=== PATIENT | male | born 2000 | race Caucasian/White ===

== ENCOUNTER 2021-03-20 20:28 | Emergency (ER) | payer MEDICAID, SELFPAY ==
[2021-03-20 20:36] VITALS: BP 138/71; PULSE 110; RESP 17; TEMP 38.3; O2SAT 95; BMI 31.3
[2021-03-20] MEDS: Ibuprofen 600 MG TABLET PO (20:43)
[2021-03-20 20:57] LABS: IDNOW Serial# 9DD0AD1C; Strep A Nucleic Acid Positive (Negative)
[2021-03-20 21:08] LABS: COVID-19 Test Negative (Negative)
--- NOTE | 2021-03-20 21:19 | ED.FEVER ---
HPI - Fever General Chief Complaint: Fever Stated Complaint: fever Time Seen by Provider: 03/20/21 21:19 Source: patient Mode of arrival: ambulatory History of Present Illness HPI Narrative: 20-year-old male with 1 day history of sore throat and fever, diaphoretic, patient took Tylenol home. Otherwise, denies any shortness of breath/chest pain/palpitations/cough. Related Data Previous Rx's Medication Instructions Recorded amoxicillin 875 mg-potassium 1 tab PO Q12H 10 Days #20 tab 03/20/21 clavulanate 125 mg tablet (Augmentin) Allergies Allergy/AdvReac Type Severity Reaction Status Date / Time No Known Allergies Allergy Verified 03/20/21 20:36 [No Known Allergies*] Review of Systems Review of Systems: Pertinent positives and negatives as stated in HPI 10 point review of systems otherwise negative. [facility] Past Medical History Source: nursing notes reviewed Medical History No pertinent past medical history Social History Social History Advance Directives: No Advance Directives Information Provided: No Physical Exam Vital Signs: Vital Signs: Last Vital Signs Temp 101.0 F H 03/20/21 20:36 Pulse 110 H 03/20/21 20:36 Resp 17 03/20/21 20:36 BP 138/71 03/20/21 20:36 Pulse Ox 95 03/20/21 20:36 Body Mass Index 31.3 VITAL SIGNS: Reviewed. GENERAL: Well developed, well nourished, in no acute distress. HEAD: Normocephalic/atraumatic EYES: PERRLA, EOMI EARS: Ext canals without abnormality, TMs non-bulging and non-erythematous NOSE: Nares patent bilateral OROPHARYNX: no oral lesions noted, posterior pharynx with erythema and tonsillar enlargement/erythema/exudates NECK: Supple, no adenopathy LUNGS: Normal breath sounds. No adventitious sounds or accessory muscle use. SpO2<95> CARDIOVASCULAR: Regular rate and rhythm without noted murmurs ABDOMEN: Soft, non-tender, non-distended with bowel sounds. SKIN: Inspection of the skin reveals no rashes NEUROLOGIC: Alert and oriented x 4. Course Course Course Narrative: 20-year-old male with history and clinical presentation most consistent with strep pharyngitis and review of all investigations consistent with clinical exam. Patient received initial antibiotics here in the ER and then was discharged home with remaining course. MDM - Fever Lab Data Labs: Lab Results 03/20/21 03/20/21 Range/Units 20:47 20:47 COVID-19 (PRASHANT) Negative (Negative) COVID-19 Clin Com See Note S. pyogenes GrpA ROSARIO Positive A (Negative) Discharge Plan Discharge Clinical Impression: Acute streptococcal pharyngitis Patient Disposition: Home, Self-Care Instructions: Strep Throat (ED) Additional Instructions: 1. Tylenol 1000 mg, por v?a oral, cada 6 horas seg?n sea necesario para temperaturas superiores a 100,4?C. No exceda los 4000 mg en 24 horas. 2. Ibuprofeno 400 mg, por v?a oral con leche o alimentos, cada 6 horas seg?n sea necesario para temperaturas superiores a 100,4?C. 3. Incrementar la hidrataci?n de los fluidos especialmente con agua. 4. Jesús un seguimiento con le proveedor de atenci?n primaria en los pr?ximos 1-2 d?as para grzegorz reevaluaci?n. Regrese a la amilcar de emergencias por un empeoramiento yesica de los s?ntomas. Prescriptions: New amoxicillin-pot clavulanate [Augmentin] 875-125 mg tablet 1 tab PO Q12H 10 Days Qty: 20 RF: 0 Referrals: Physician,Unknown [Primary Care Provider] - 2 days Print Language: Slovak
[2021-03-20] MEDS: Amoxicillin/Potassium Clav 875 MG TABLET PO (21:33)
== END 2021-03-20 22:02 | disposition home or self-care (01) ==
PROVIDERS: Emergency Provider Student in an Organized Health Care Education/Training Program
DX: J02.0 Streptococcal pharyngitis (principal); R50.9 Fever, unspecified; Z20.822 Contact with and (suspected) exposure to COVID-19
CPT/HCPCS: 36415; 87635; 87651; 99283

== ENCOUNTER 2021-04-25 23:11 | Emergency (ER) | payer MEDICAID, SELFPAY ==
[2021-04-25 23:21] VITALS: BP 125/76; PULSE 97; RESP 16; TEMP 36.8; O2SAT 98; BMI 35.2
--- NOTE | 2021-04-26 00:10 | ED.GENADULT ---
HPI - General Adult General Chief complaint: General Medical Stated complaint: throat pain Time Seen by Provider: 04/26/21 00:01 History of Present Illness HPI narrative: Patient presents to ED for sore throat for 3 days. Patient denies any chest pain or shortness of breath. Patient recently tested positive for strep test in February and was given antibiotics. Patient states no fever or chills. Related Data Previous Rx's Medication Instructions Recorded amoxicillin 875 mg-potassium 1 tab PO Q12H 10 Days #20 tab 03/20/21 clavulanate 125 mg tablet (Augmentin) Allergies Allergy/AdvReac Type Severity Reaction Status Date / Time No Known Allergies Allergy Verified 04/25/21 23:21 [No Known Allergies*] Review of Systems Review of Systems: Yes all other systems are reviewed and are negative Constitutional: Constitutional: Reports as per HPI and Reports no additional constitutional complaints Eyes: Eyes: Reports as per HPI and Reports no additional eye complaints ENT: Reports system reviewed and no additional complaints, except as documented, Reports as per HPI and Reports sore throat Cardiovascular: Cardiovascular: Reports as per HPI and Reports no additional cardiovascular complaints Respiratory: Respiratory: Reports as per HPI and Reports no additional respiratory complaints Gastrointestinal: Gastrointestinal: Reports as per HPI and Reports no additional gastrointestinal complaints Genitourinary: Genitourinary: Reports no additional male genitourinary complaints and Reports as per HPI Musculoskeletal: Musculoskeletal: Reports no additional musculoskeletal complaints and Reports as per HPI Neurologic: Reports system reviewed and no additional complaints, except as documented and Reports as per HPI Psychiatric: Psychiatric: Reports no additional psychiatric complaints and Reports as per HPI [facility] Past Medical History Medical History No pertinent past medical history Social History Social History Advance Directives: No Advance Directives Information Provided: Yes Physical Exam Vital Signs: Vital Signs: Last Vital Signs Temp 98.3 F 04/25/21 23:21 Pulse 97 04/25/21 23:21 Resp 16 04/25/21 23:21 BP 125/76 04/25/21 23:21 Pulse Ox 98 04/25/21 23:21 Body Mass Index 35.2 Const: General: cooperative, healthy appearing, comfortable, no acute distress, well developed, alert, awake and Physically active Orientation/consciousness: patient oriented x3 HENMT: Other: negative for signs of peritonsillar abscess. Tonsils slightly red and slight swollen. Head: Yes normal to inspection, Yes No palpable skull fracture present, Yes normocephalic, Yes atraumatic and No abrasion Throat: Yes posterior oropharynx normal and Yes uvula midline Eyes: General: appearance normal, both eyes and all related structures Neck: Neck: Yes normal visual inspection, Yes full ROM, Yes no lymphadenopathy, Yes no meningeal signs, Yes trachea midline, Yes supple and No tender Chest: Chest palpation & inspection: normal inspection of the chest and normal palpation of entire chest wall Resp: Effort & Inspection: normal respiratory effort and able to speak in complete sentences Auscultation: clear to auscultation bilaterally Cardio: Jugular venous distension: no JVD Heart sounds: S1 normal heart sound present and S2 normal heart sound present GI: Inspection: Yes normal to inspection and No abdominal wall ecchymosis Palpation (GI): Soft to palpation, not firm, nontender, no guarding and not rigid : General: No CVA tenderness and Yes no CVA tenderness Back/Spine/Pelvis: Back: no CVA tenderness, No CVA tenderness and No back tenderness Skin: General skin exam: no rashes or lesions noted and elasticity normal Neuro: General: patient oriented x3, gait normal, no meningeal signs and CN's II-XI intact bilaterally Cranial nerves: Yes CN's II-XII intact bilaterally Extrem: General: Yes normal to inspection and Yes full ROM Psych: Appearance: grossly normal, well kempt and not disheveled Course Course Course Narrative: COVID and strep sent Reevaluation(s) Reevaluation #1: Covid and strep sent. Time: 01:05 Medical Decision Making [facility] Narrative Medical decision making narrative: Viral Pharyngitis Lab Data Labs: Lab Results 04/26/21 04/26/21 Range/Units 00:27 00:27 COVID-19 (PRASHANT) Negative (Negative) COVID-19 Clin Com See Note S. pyogenes GrpA ROSARIO Negative (Negative) Discharge Plan Discharge Clinical Impression: Acute viral pharyngitis Patient Disposition: Home, Self-Care Instructions: Pharyngitis (ED) Additional Instructions: Your covid and strep test negative. Returh to the ED for drooling, chest pain, shortness of breath, swelling of face/neck, change in voice, or any other concerning symptoms. Please follow up with PCP. Prescriptions: No Action amoxicillin-pot clavulanate [Augmentin] 875-125 mg tablet 1 tab PO Q12H 10 Days Qty: 20 RF: 0 Stand Alone Forms: Work/School Release Interventions: ED Discharge Assessment Last Done: 04/26/21 01:10 Discharge Date/Time: 04/26/21 01:11 Print Language: South African
[2021-04-26 00:49] LABS: Strep A Nucleic Acid Negative (Negative)
[2021-04-26 00:53] LABS: COVID-19 Test Negative (Negative); IDNOW Serial# 9DD0AD1C
== END 2021-04-26 01:11 | disposition home or self-care (01) ==
PROVIDERS: Physician Assistant; Emergency Provider Internal Medicine
DX: J02.9 Acute pharyngitis, unspecified (principal); Z20.822 Contact with and (suspected) exposure to COVID-19
CPT/HCPCS: 36415; 87635; 87651; 99283

== ENCOUNTER 2024-03-26 19:04 | Emergency (ER) | payer SELFPAY ==
[2024-03-26 19:13] VITALS: BP 144/69; PULSE 85; RESP 20; TEMP 36.7; O2SAT 97; BMI 28.2
--- NOTE | 2024-03-26 19:14 | ED_ITS ---
HPI - Male Genitourinary General Chief complaint: Urogenital-Male Stated complaint: pain when urinating Time Seen by Provider: 03/26/24 22:31 Source: patient Mode of arrival: ambulatory Limitations: no limitations History of Present Illness ED Provider: Dr. Savanna Dee HPI Narrative: Patient comes to the emergency room complaining of 3 days of dysuria, denies penile discharge. Patient denies flank pain or hematuria. Denies kidney stones. Denies fever chills Related Data Previous Rx's ?Medication ?Instructions ?Recorded amoxicillin 875 mg-potassium 1 tab PO Q12H 10 days #20 tabs 03/20/21 clavulanate 125 mg tablet (Augmentin) cefuroxime axetil 250 mg tablet 250 mg PO BID #14 tabs 03/26/24 doxycycline hyclate 100 mg capsule 100 mg PO BID #14 caps 03/26/24 Allergies Allergy/AdvReac Type Severity Reaction Status Date / Time No Known Allergies Allergy Verified 03/26/24 19:14 [No Known Allergies*] Review of Systems Review of Systems: Constitutional : No Weight loss, No Fever, No Chills, No Night Sweats, No Fatigue, No Malaise ENT/Mouth : No Hearing loss, No Ear Pain, No Nasal Congestion, No Sinus Pain, No Hoarseness, No sore throat, No Rhinorrhea, No Swallowing Difficulty Eyes: No Eye Pain, No Swelling, No Redness, No Foreign Body, No Discharge, No Vision Changes Cardiovascular : No Chest Pain, No SOB, No Dyspnea on Exertion, No Orthopnea, No Edema, No Palpitations Respiratory : No Cough, No Sputum, No Wheezing, No Smoke Exposure, No Dyspnea Gastrointestinal : No Nausea, No Vomiting, No Diarrhea, No Constipation, No abdominal Pain, No Hematochezia, No Melena Genitourinary : no irregular bleeding, complaining of 3 days ofDysuria, No Urinary Frequency, No Hematuria, No Urinary Incontinence, No Urgency, No Flank Pain, No Urinary Flow Changes, No Hesitancy Musculoskeletal : No joint pain, No Myalgias, No Joint Swelling Skin : No Skin Lesions, No rash Neuro : No Weakness, No Numbness, No Paresthesias, No Loss of Consciousness, No Dizziness, No Headache Psych : No Anxiety/Panic, No Depression, No SI/HI/AH/VH, No Social Issues, Heme/Lymph: No Bruising, No Bleeding,No Lymphadenopathy Endocrine : No Polyuria, No Polydipsia, No Temperature Intolerance [facility] Past Medical History Medical History No pertinent past medical history Social History Social History Advance Directives: No Advance Directives Information Provided: No Physical Exam Vital Signs: Vital Signs: Last Vital Signs Temp 98.2 F 03/26/24 22:25 Pulse 74 03/26/24 22:25 Resp 18 03/26/24 22:25 BP 135/66 03/26/24 22:25 Pulse Ox 97 03/26/24 22:25 O2 Del Method Room Air 03/26/24 22:25 BMI result Body Mass Index 28.2 Const: Other: Appearance: Alert. Oriented X3. No acute distress. Eyes: Pupils equal, round and reactive to light. ENT: Pharynx normal. Neck: Normal inspection. Neck supple. No lymph nodes noted. No crepitus CVS: Normal heart rate and rhythm. Pulses normal. Normal S1 and S2 Respiratory: No respiratory distress. Breath sounds normal. No Wheezing. No rales Abdomen: Soft and nontender. No rigidity. No distention. Skin: Skin warm and dry. Normal skin color. Normal skin turgor. Extremities: No lower extremity edema. No Lacerations. No Rash Neuro: Oriented X 3. No motor deficit. No sensory deficit. Moving all extremities. No slurred speech. CN 2 through 12 grossly intact Psych: calm, cooperative, normal affect Course Course Course Narrative: This is an RME: Additional HPI, ROS, PE not included below will be deferred to primary provider. RME assessment and note performed by: Siria Hogue PA-C This is a [id number]-male, with no known medical problems, who presents to the ER with complaints of dysuria x several days. Patient noted to also have bilateral eye redness, girlfriend states that he has seasonal allergies. Plan: CT mg, UA, further ER evaluation needed. Medical Decision Making Medical Decision Making MDM Narrative: I discussed with the patient that his urine is positive for a UTI. However, although patient does not have any penile discharge, patient would like to be empirically treated for sexually transmitted diseases. - Discussed with the patient that his results for gonorrhea and chlamydia may take couple of days, if positive, he will receive a phone call with the results. Either way, patient will already be started on his antibiotics. Lab Data Labs: Lab Results 03/26/24 Range/Units 20:30 Urine Color Yellow Urine Appearance Clear Urine pH 8.0 (5.0-9.0) Ur Specific [place] 1.025 (1.005-1.025) Urine Protein Negative (Neg-Trace) mg/dL Urine Glucose (UA) Negative (Negative) mg/dL Urine Ketones Negative (Negative) mg/dL Urine Blood Negative (Negative) Urine Nitrite Negative (Negative) Ur Leukocyte Esterase Trace H (Negative) Urine RBC 0-2 (0-2) /HPF Urine WBC 11-20 H (0-5) /HPF Ur Squamous Epith Cells 0-2 (0-2) /HPF Urine Bacteria None Seen (None Seen) Hyaline Casts 0-2 (0-2) /LPF Discharge Plan Discharge Clinical Impression: Acute UTI Patient Disposition: Home, Self-Care Instructions: Urinary Tract Infection in Men (DC) Additional Instructions: Please follow-up with your primary care physician tomorrow. If you have any worsening or new symptoms, please return to the emergency room or call 911 Prescriptions: New cefuroxime axetil 250 mg tablet 250 mg PO BID Qty: 14 0RF doxycycline hyclate 100 mg capsule 100 mg PO BID Qty: 14 0RF No Action amoxicillin-pot clavulanate [Augmentin] 875-125 mg tablet 1 tab PO Q12H 10 Days Qty: 20 0RF Print Language: Malagasy
[2024-03-26 20:42] LABS: Appearance Urine Clear; Color Urine Yellow; Glucose Urine UA Negative (Negative); Leukocyte Esterase Urine Trace (Negative); Nitrite Urine Negative (Negative); Specific Gravity - Urine 1.025 (1.005-1.025); UMIC TRIGGER UACC YES; Urine Blood Negative (Negative); Urine Ketones Negative (Negative); Urine Protein Negative (Neg-Trace)
[2024-03-26 20:54] LABS: Bacteria Urine None Seen (None Seen); Hyaline Casts Urine 0-2 /LPF (0-2); RBC Urine 0-2 /HPF (0-2); Squamous Epithelial Cell Urine 0-2 /HPF (0-2); UACC Culture Trigger YES
[2024-03-26 22:25] VITALS: BP 135/66; PULSE 74; RESP 18; TEMP 36.8; O2SAT 97
[2024-03-26] MEDS: cefTRIAXone sodium 1 GM, Lidocaine HCl 1 % MPF 2.1 ML IM (23:09)
[2024-03-26] MEDS: Doxycycline Monohydrate 100 MG CAPSULE PO (23:09)
[2024-03-26 23:16] VITALS: BP 135/66; PULSE 74; RESP 18; TEMP 36.8; O2SAT 97
[2024-03-27 03:15] LABS: CT PCR NOT DETECTED (Not Detect.); NG PCR NOT DETECTED (Not Detect.)
== END 2024-03-26 23:17 | disposition home or self-care (01) ==
PROVIDERS: Physician Assistant Medical; Emergency Provider Emergency Medicine
DX: N39.0 Urinary tract infection, site not specified (principal); R30.0 Dysuria
CPT/HCPCS: 81001; 87086; 87491; 87591; 96372; 99283; 99284; J0696

== ENCOUNTER 2024-10-20 17:58 | Emergency (ER) | payer MEDICAID, SELFPAY ==
[2024-10-20 18:27] VITALS: BP 129/69; PULSE 100; RESP 18; TEMP 38.7; O2SAT 98; BMI 34.5
--- NOTE | 2024-10-20 18:36 | ED_ITS ---
HPI - General Adult General Chief complaint: General Medical Stated complaint: swollen throat / spitting up blood when coughing Time Seen by Provider: 10/20/24 19:33 Source: patient Limitations: no limitations History of Present Illness ED Provider: Itzel Green PA-C HPI narrative: 24-year-old male presents with sore throat x1 and half days. Associated odynophagia, unknown if had a fever. No cough or cold symptoms, no sick contacts with similar symptoms. Related Data Previous Rx's ?Medication ?Instructions ?Recorded amoxicillin 875 mg-potassium 1 tab PO Q12H 10 days #20 tabs 03/20/21 clavulanate 125 mg tablet (Augmentin) cefuroxime axetil 250 mg tablet 250 mg PO BID #14 tabs 03/26/24 doxycycline hyclate 100 mg capsule 100 mg PO BID #14 caps 03/26/24 penicillin V potassium 500 mg 500 mg PO BID #19 tabs 10/20/24 tablet Allergies Allergy/AdvReac Type Severity Reaction Status Date / Time No Known Allergies Allergy Verified 10/20/24 18:31 [No Known Allergies*] Review of Systems 2 Review of Systems: Yes all other systems are reviewed and are negative Constitutional: Constitutional: Denies fatigue and Denies fever(s) ENT: Reports odynophagia and Reports sore throat Cardiovascular: Cardiovascular: Denies chest pain and Denies dyspnea Respiratory: Respiratory: Denies cough and Denies dyspnea Gastrointestinal: Gastrointestinal: Denies nausea, Reports odynophagia and Denies vomiting Endocrine: Endocrine: Denies fatigue PMFSH Past Medical History Attestation statement: The following information was validated with the patient. Medical History No pertinent past medical history Social History Social History Smoked in Last 30 Days: No Use of substances other than those prescribed or required for medical reasons: No Advance Directives: No Advance Directives Information Provided: No Physical Exam ED Vital Signs: Vital Signs - 24 hr 10/20/24 18:27 10/20/24 19:55 10/20/24 20:13 Temperature 101.7 F H 100.8 F H 100.8 F H Pulse Rate 100 128 H 128 H Respiratory Rate 18 18 18 Blood Pressure 129/69 130/75 130/75 Pulse Oximetry 98 98 98 Oxygen Delivery Method Room Air Room Air Room Air BMI result Body Mass Index 34.5 Const Other: Alert Orientation/consciousness: patient oriented x3 HENMT Other: tonsils are kissing with overlying erythema and exudate, uvula midline, no trismus no drooling, no sublingual fluctuance no swelling inferior to the jawline Neck Other: anterior cervical lymphadenopathy Resp Effort & Inspection: normal respiratory effort Cardio Other: normal peripheral perfusion Skin Other: warm dry no rash Neuro General: patient oriented x3, gait normal, no focal motor deficits and CN's II- XI intact bilaterally Psych Other: cooperative Medications Administered Discontinued Medications Generic Name Dose Route Start Last Admin Trade Name Freq PRN Reason Stop Dose Admin Dexamethasone 10 mg 10/20/24 19:46 10/20/24 20:04 Dexamethasone 2 Mg Tablet PO 10/20/24 19:47 10 mg ONCE ONE Administration Ketorolac Tromethamine 15 mg 10/20/24 19:46 10/20/24 20:05 Ketorolac Tromethamine 15 Mg/Ml Vial IM 10/20/24 19:47 15 mg ONCE ONE Administration Penicillin V Potassium 500 mg 10/20/24 19:46 10/20/24 20:05 Penicillin V Potassium 250 Mg Tablet PO 10/20/24 19:47 500 mg ONCE ONE Administration Medical Decision Making Medical Decision Making [facility] Narrative: 24-year-old male presents with sore throat x1 and half days. Associated odynophagia, unknown if had a fever. No cough or cold symptoms, no sick contacts with similar symptoms. no chronic issues History: Per patient I have considered the following differential diagnoses: Viral syndrome, strep pharyngitis, RPA, SUSTAINABILITY PROJECT MANAGER Plan: Viral panel and strep screen , As well as screening labs obtained from triage, he has strep throat we will treat with Decadron, penicillin giving Toradol he has a fever. there are no exam findings consistent with RPA or SUSTAINABILITY PROJECT MANAGER on exam. I have independently reviewed the following tests: Labs: leukocytosis, not anemic, no electrolyte abnormality, viral panel negative, strep screen positive Lab Data 10/20/24 18:51 10/20/24 18:51 Labs: Lab Results 10/20/24 Range/Units 18:51 WBC 20.5 H (4.8-10.8) X10*3/uL RBC 4.50 L (4.60-5.80) X10*6/uL Hgb 13.9 L (14.0-18.0) g/dl Hct 39.9 L (42.0-52.0) % MCV 88.7 (80.0-98.0) fL MCH 30.9 (27.0-33.0) pg MCHC 34.8 (31.0-36.0) g/dl RDW 11.8 (11.0-16.0) % Plt Count 250 (160-400) X10*3/uL MPV 10.9 (9.4-12.4) fL Immature Gran % (Auto) 0.5 H (0.0-0.4) % Neut % (Auto) 83.7 H (45-73) % Lymph % (Auto) 6.9 L (20-40) % [place] % (Auto) 7.9 (2-11) % Eos % (Auto) 0.6 (0-4) % Baso % (Auto) 0.4 (0-2) % Lymph # (Auto) 1.4 (1.2-4.9) X10*3/uL [place] # (Auto) 1.6 H (0.1-1.2) X10*3/uL Eos # (Auto) 0.1 (0.0-0.4) X10*3/uL Baso # (Auto) 0.1 (0.0-0.2) X10*3/uL Abs Immat Gran (auto) 0.10 H (0.00-0.03) X10*3/uL Absolute Neuts (auto) 17.1 H (2.0-8.3) x10*3/uL Absolute Nucleated RBC 0.000 (0.0-0.012) X10*3/uL Nucleated RBC % (auto) 0.0 (0.0-0.2) /100WBC Smear Tech's Comments VERIFIED Sodium 140 (135-145) mmol/L Potassium 4.4 (3.3-5.1) mmol/L Chloride 103 (96-108) mmol/L Carbon Dioxide 26 (22-29) mmol/L Anion Gap 15 (12-20) BUN 14 (9-16) mg/dL Creatinine 0.84 (0.5-1.4) mg/dL Estim Creat Clear Calc 150.1 Estimated GFR > 60 Random Glucose 100 (60-115) mg/dL Calcium 9.5 (8.4-10.2) mg/dL Total Bilirubin 2.0 H (0.0-1.0) mg/dL AST 19 (5-37) U/L ALT 34 (0-40) U/L Alkaline Phosphatase 97 (39-117) U/L Total Protein 8.0 (6.5-8.0) g/dL Albumin 4.3 (3.5-5.0) g/dL Monoscreen Negative (Negative) Influenza Type A (PCR) NEGATIVE (Negative) Influenza Type B (PCR) NEGATIVE (Negative) RSV RNA Qual (PCR) NEGATIVE (Negative) SARS-CoV-2 RNA (RT-PCR) NEGATIVE (Negative) S. pyogenes GrpA ROSARIO Positive A (Negative) Discharge Plan Discharge Clinical Impression: Acute streptococcal pharyngitis Patient Disposition: Home, Self-Care Instructions: Strep Throat (ED) Additional Instructions: you were found to have strep throat. The viral panel was negative, see home care instructions. Take the penicillin as directed. You received a 1 time dose of steroid which will help to decrease the tonsillar swelling. Warm saltwater gargles we will help with the pain. You can use [id number] ibuprofen 600 mg taken every 6 hours with food, alternated with [id number] Tylenol 1000 mg taken every 8 hours, for fever, pain and body aches. Follow up with primary care as needed. Prescriptions: New penicillin V potassium 500 mg tablet 500 mg PO BID Qty: 19 0RF No Action amoxicillin-pot clavulanate [Augmentin] 875-125 mg tablet 1 tab PO Q12H 10 Days Qty: 20 0RF cefuroxime axetil 250 mg tablet 250 mg PO BID Qty: 14 0RF doxycycline hyclate 100 mg capsule 100 mg PO BID Qty: 14 0RF Interventions: ED Discharge Assessment Last Done: 10/20/24 20:13 Discharge Date/Time: 10/20/24 20:14 Print Language: Barbadian
[2024-10-20 18:56] LABS: Basophils Absolute Auto 0.1 X10*3/uL (0.0-0.2); Basophils Percent Auto 0.4 % (0-2); Eosinophils Absolute Auto 0.1 X10*3/uL (0.0-0.4); Eosinophils Percent Auto 0.6 % (0-4); Hematocrit 39.9 % (42.0-52.0); Hemoglobin 13.9 g/dl (14.0-18.0); Imm Gran Pct Auto 0.5 % (0.0-0.4); Lymphocytes Absolute Auto 1.4 X10*3/uL (1.2-4.9); Lymphocytes Percent Auto 6.9 % (20-40); MANUAL DIFF FLAG SCAN; Mean Corpuscular HGB Conc 34.8 g/dl (31.0-36.0); Mean Corpuscular Hemoglobin 30.9 pg (27.0-33.0); Mean Corpuscular Volume 88.7 fL (80.0-98.0); Mean Platelet Volume 10.9 fL (9.4-12.4); Monocytes Absolute Auto 1.6 X10*3/uL (0.1-1.2); Monocytes Percent Auto 7.9 % (2-11); Neutrophils Absolute Auto 17.1 x10*3/uL (2.0-8.3); Neutrophils Percent Auto 83.7 % (45-73); Platelet Count 250 X10*3/uL (160-400); Red Cell Distribution Width 11.8 % (11.0-16.0); SCAN SMEAR FLAG 1; White Blood Count 20.5 X10*3/uL (4.8-10.8)
[2024-10-20 19:05] LABS: IDNOW Serial# 58CA691E; Strep A Nucleic Acid Positive (Negative)
[2024-10-20 19:13] LABS: SLIDE REVIEW VERIFIED
[2024-10-20 19:20] LABS: Alanine Aminotransferase 34 U/L (0-40); Albumin Level 4.3 g/dL (3.5-5.0); Alkaline Phosphatase 97 U/L (39-117); Anion Gap 15 (12-20); Aspartate Amino Transferase 19 U/L (5-37); Blood Urea Nitrogen 14 mg/dL (9-16); Calcium 9.5 mg/dL (8.4-10.2); Carbon Dioxide 26 mmol/L (22-29); Chloride 103 mmol/L (96-108); Creatinine Clr Calc Pharmacy 150.1; Estimated Glomerular Filt Rate > 60; Glucose Random 100 mg/dL (60-115); Potassium 4.4 mmol/L (3.3-5.1); Sodium 140 mmol/L (135-145)
[2024-10-20 19:26] LABS: Monotest Negative (Negative)
[2024-10-20 19:37] LABS: Influenza A PCR NEGATIVE (Negative); Influenza B PCR NEGATIVE (Negative); Resp Syncy Virus RNA Qual PCR NEGATIVE (Negative); SARS COV2 PCR INHOUSE NEGATIVE (Negative)
[2024-10-20 19:55] VITALS: BP 130/75; PULSE 128; RESP 18; TEMP 38.2; O2SAT 98
[2024-10-20] MEDS: dexAMETHasone 2 MG TABLET 10 MG PO (20:04)
[2024-10-20] MEDS: Penicillin V Potassium 250 MG TABLET 500 MG PO (20:05)
[2024-10-20] MEDS: Ketorolac Tromethamine 15 MG/ML VIAL IM (20:05)
[2024-10-20 20:13] VITALS: BP 130/75; PULSE 128; RESP 18; TEMP 38.2; O2SAT 98
== END 2024-10-20 20:14 | disposition home or self-care (01) ==
PROVIDERS: Physician Assistant; Emergency Provider Emergency Medicine
DX: J02.0 Streptococcal pharyngitis (principal); R05.9 Cough, unspecified; Z03.818 Encounter for observation for suspected exposure to other biological agents ruled out
CPT/HCPCS: 0241U; 80053; 85025; 86308; 87651; 96372; 99284; J1885; J8540